=== PATIENT | male | born 1950 | race Caucasian/White ===

== ENCOUNTER 2019-08-05 14:14 | Inpatient (IN) | payer MEDICARE, OTHER ==
[~2019-08-05] VITALS: Ht 170.2 cm; Wt 148.0 kg
[2019-08-05 14:56] LABS: BASOPHILS # (AUTO) 0.1 X10'3 (0-0.2); BASOPHILS % (AUTO) 0.7 % (0-1); EOSINOPHILS # (AUTO) 0.1 X10'3 (0-0.9); EOSINOPHILS % (AUTO) 0.6 % (0-6); HEMATOCRIT 42.2 % (42.0-52.0); HEMOGLOBIN 13.7 g/dl (14.0-17.9); LYMPHOCYTES # (AUTO) 0.8 X10'3 (1.1-4.8); LYMPHOCYTES % (AUTO) 7.9 % (21-51); MEAN CORPUSCULAR HEMOGLOBIN 27.7 PG (27.0-31.0); MEAN CORPUSCULAR HGB CONC 32.6 g/dL (33.0-36.5); MEAN CORPUSCULAR VOLUME 85.2 FL (78-98); MEAN PLATELET VOLUME 8.1 FL (7.4-10.4); MONOCYTES # (AUTO) 1.1 X10'3 (0-0.9); MONOCYTES % (AUTO) 10.8 % (2-12); NEUTROPHILS # (AUTO) 8.2 X10'3 (1.8-7.7); PLATELET COUNT 325 X10'3 (140-440); RED BLOOD COUNT 4.96 X10'6 (4.70-6.10); RED CELL DISTRIBUTION WIDTH 16.5 % (11.5-14.5); WHITE BLOOD COUNT 10.2 X10'3 (4.5-11.0)
[2019-08-05 15:04] LABS: PARTIAL THROMBOPLASTIN TIME 28 SECONDS (22-32)
[2019-08-05 15:06] LABS: ALANINE AMINOTRANSFERASE 19 U/L (12-78); ALBUMIN 2.7 G/DL (3.4-5.0); ALBUMIN/GLOBULIN RATIO 0.7 (1.1-1.5); ALKALINE PHOSPHATASE 77 IU/L (46-116); ANION GAP 7 (8-16); ASPARTATE AMINO TRANSFERASE 21 U/L (10-37); BILIRUBIN,TOTAL 0.7 MG/DL (0.1-1.0); BLOOD UREA NITROGEN 10 MG/DL (7-18); BUN/CREATININE RATIO 11.4 (5.4-32.0); CALCIUM 8.4 MG/DL (8.5-10.1); CHLORIDE 104 MMOL/L (99-107); CREATININE 0.88 MG/DL (0.60-1.10); GLUCOSE 130 MG/DL (70-104); POTASSIUM 3.2 MMOL/L (3.5-5.1); SODIUM 141 MMOL/L (135-145); TOTAL CARBON DIOXIDE 30.3 MMOL/L (24-32); TOTAL PROTEIN 6.5 G/DL (6.4-8.2); eGFR 86 ML/MIN
[2019-08-05] MEDS ORDERED: ondansetron/PF 4mg/2ml inj IV ONE (15:15)
[2019-08-05] MEDS ORDERED: diltiazem 5mg/ml 5ml inj. IV ONE (15:15)
[2019-08-05] MEDS ORDERED: morphine 4 MG/ML inj SYRINge IV ONE ×2 (15:15→17:15)
[2019-08-05] MEDS ORDERED: diltiazem-D5W 125mg/125ml 125 ML IV SCH ×3 (16:10→22:50)
[2019-08-05] MEDS ORDERED: LORazepam 2 mg/ml vial IV ONE ×2 (16:35→16:40)
--- NOTE | 2019-08-05 16:35 | NUR ---
[address] SCAN PER [facility], WITH PORTABLE MONITOR INTACT. PATIENT HAS O2 PER NC AT 3LPM WITH O2 SATS 93%. PATIENT WAS TRANSFERRED TO CT TABLE WITH MUCH PAIN AND INABILITY TO RECLINE AND STATES THAT HE CANNOT BREATHE. O2 INCREASED TO 10 LPM. HR PER MONITOR IS FLUCTUATING FROM 110'S TO 150'S. O2 SATS 92% ON O2 PER NC. ATTEMPTED TO REPOSITION PATIENT WITHOUT SUCCESS. 1620 PATIENT UNABLE TO TOLERATE CT SCANS AND IS TRANSFERRED BACK TO [facility] AND RETURNED TO ER #[id number]. DR. RODRIGUEZ NOTIFIED OF PATIENT'S INABILITY TO TOLERATE CT SCAN.
[2019-08-05] MEDS ORDERED: metoprolol tartrate 1mg/ml inj IV ONE (16:40)
--- NOTE | 2019-08-05 17:01 | NUR ---
PATIENT BACK FROM CT EARLIER BUT JUSY NOW TOLD BY [employer] COATINGS INSTALLER THAT OUMOU WAS UNABLE AND REFUSED TO HAVE HIS HEAD LOWERED
[2019-08-05] MEDS: diltiazem-NS 100mg/100ml 100 ML IV SCH ×3 (17:10→22:58)
[2019-08-05] MEDS ORDERED: morphine 2 MG/ML inj. syringe IV ONE (17:20)
--- NOTE | 2019-08-05 17:30 | NUR ---
RIGHT 20 GAUGE PIV STARTED
--- NOTE | 2019-08-05 17:31 | NUR ---
relieving RN for lunch, pt is on monitor with RN at CT
--- NOTE | 2019-08-05 17:31 | NUR ---
RIGHT AC PIV
[2019-08-05] MEDS ORDERED: potassium Cl 20 mEq SR tablet PO STA (17:37)
--- NOTE | 2019-08-05 17:45 | NUR ---
TRAUMA CALLED OFF BY DR RODRIGUEZ
[2019-08-05] MEDS ORDERED: magnesium 2GM in 50ml NS 50 ML IV ONE (18:25)
[2019-08-05] MEDS ORDERED: ketorolac tromethamine 15mg/ml inj. IV ONE (18:55)
[2019-08-05] MEDS ORDERED: normal saline 1000ml 1,000 ML IV SCH (19:03)
[2019-08-05] MEDS ORDERED: magnesium hydroxide 30ml (MOM) UD suspension PO PRN (19:05)
[2019-08-05] MEDS ORDERED: acetaminophen 325mg tablet PO PRN (19:05)
[2019-08-05] MEDS ORDERED: potassium Cl 20 mEq SR tablet PO PRN (19:05)
[2019-08-05] MEDS ORDERED: mag hydrox/Alum hydrox/simeth 30ml oral suspension PO PRN (19:05)
[2019-08-05] MEDS ORDERED: ondansetron/PF 4mg/2ml inj IV PRN (19:05)
[2019-08-05] MEDS ORDERED: morphine/NS 5 mg/ml CADD 50 ML IV SCH (19:07)
[2019-08-05] MEDS ORDERED: CADD PCA waste documentation MC PRN (19:10)
[2019-08-05] MEDS ORDERED: naloxone 0.4 mg/ml inj IV PRN (19:10)
--- NOTE | 2019-08-05 21:25 | NUR ---
TALKED TO DR CURIEL RE INCREASING CONFUSION AND NEED FOR WOUND CARE CONSULT
--- NOTE | 2019-08-05 21:33 | NUR ---
Patient in room ED 8. I have received report from Alicia WARD and had the opportunity to ask questions and assume patient care.
--- NOTE | 2019-08-05 21:33 | NUR ---
REPORT TO ANTIONE WARD CANDICE UNIT; PATIENT TO BE TRANSFERED TO ROOM 313 A. RN AWARE THAT MEDICATION RECONCILIATION NOT DONE AND DR VILLA IS AWARE AND OK WITH THE MEDICATION RECONCILIATION BEING COMPLETED ON THE FLOOR.
--- NOTE | 2019-08-05 22:25 | NUR ---
pt BP 85/[address] Bolton [facility] gtt changed from 20mg to 10mg/hr.
[2019-08-05 22:30] VITALS: BP 94/68
[2019-08-05 22:45] VITALS: BP 90/36
[2019-08-05 23:00] VITALS: BP 108/76
[2019-08-05] MEDS ORDERED: HYDROmorphone/NS 1 mg/ml CADD 50 ML IV SCH (23:00)
[2019-08-05] MEDS ORDERED: METO100T14 PO (23:03)
[2019-08-05] MEDS ORDERED: RIVA2.5T (23:13)
[2019-08-05 23:15] VITALS: BP 115/73
[2019-08-05] MEDS ORDERED: FLO0.4C PO (23:18)
[2019-08-05] MEDS ORDERED: ASPI-1265 PO (23:20)
[2019-08-05] MEDS ORDERED: ASCO500C15 PO (23:22)
[2019-08-05] MEDS ORDERED: B12/1TAB PO (23:22)
[2019-08-05] MEDS ORDERED: ACET-2119 PO (23:23)
[2019-08-05] MEDS ORDERED: DILT180C90 PO (23:25)
[2019-08-05 23:30] VITALS: BP 136/98
--- NOTE | 2019-08-05 23:30 | NUR ---
pt had multiple epsiode of confusion, Dilaudid cad was postponed, will notify Dr Gilbert
[2019-08-06] VITALS (11 sets, daily range): BP systolic 104–134; BP diastolic 40–83
[2019-08-06 02:05] LABS: BASOPHILS # (AUTO) 0.1 X10'3 (0-0.2); BASOPHILS % (AUTO) 0.6 % (0-1); EOSINOPHILS # (AUTO) 0.1 X10'3 (0-0.9); EOSINOPHILS % (AUTO) 1.5 % (0-6); HEMATOCRIT 40.7 % (42.0-52.0); HEMOGLOBIN 12.9 g/dl (14.0-17.9); LYMPHOCYTES % (AUTO) 10.8 % (21-51); MEAN CORPUSCULAR HEMOGLOBIN 27.5 PG (27.0-31.0); MEAN CORPUSCULAR HGB CONC 31.7 g/dL (33.0-36.5); MEAN CORPUSCULAR VOLUME 86.7 FL (78-98); MEAN PLATELET VOLUME 8.2 FL (7.4-10.4); MONOCYTES # (AUTO) 1.5 X10'3 (0-0.9); NEUTROPHILS # (AUTO) 6.8 X10'3 (1.8-7.7); NEUTROPHILS % (AUTO) 71.1 % (42-75); PLATELET COUNT 298 X10'3 (140-440); RED BLOOD COUNT 4.69 X10'6 (4.70-6.10); RED CELL DISTRIBUTION WIDTH 17.3 % (11.5-14.5); WHITE BLOOD COUNT 9.6 X10'3 (4.5-11.0)
[2019-08-06 02:16] LABS: ALANINE AMINOTRANSFERASE 21 U/L (12-78); ALBUMIN 2.7 G/DL (3.4-5.0); ALBUMIN/GLOBULIN RATIO 0.7 (1.1-1.5); ALKALINE PHOSPHATASE 74 IU/L (46-116); ANION GAP 4 (8-16); ASPARTATE AMINO TRANSFERASE 20 U/L (10-37); BILIRUBIN,TOTAL 0.5 MG/DL (0.1-1.0); BLOOD UREA NITROGEN 18 MG/DL (7-18); BUN/CREATININE RATIO 16.4 (5.4-32.0); CALCIUM 8.4 MG/DL (8.5-10.1); CHLORIDE 105 MMOL/L (99-107); GLUCOSE 106 MG/DL (70-104); POTASSIUM 4.1 MMOL/L (3.5-5.1); SODIUM 141 MMOL/L (135-145); TOTAL CARBON DIOXIDE 31.9 MMOL/L (24-32); TOTAL PROTEIN 6.5 G/DL (6.4-8.2); eGFR 67 ML/MIN
[2019-08-06 04:25] LABS: ABG BASE EXCESS 3.3 mmol/L (-2.0-3.0); ABG HCO3 30.5 mmol/L (22.0-26.0); ABG OXYGEN SATURATION 86.6 % (95-98); ABG PH (T) 7.326 (7.350-7.450); ABG PO2 (T) 59.7 mmHg (83-108); ALLEN'S TEST Positive; FCOHb 1.2 % (0.5-1.5); FMetHb 0.3 % (0.3-1.12); FO2Hb 85.3 % (94-100); PATIENT TEMPERATURE 37.4; TOTAL HEMOGLOBIN 12.7 G/dl (14.0-17.9)
--- NOTE | 2019-08-06 05:00 | NUR ---
Dr Bolton ordered to hold off on the dilaudid CAD due to pt confusion, second ABG order @0630 to follow up due to CO2 retention
--- NOTE | 2019-08-06 06:23 | NUR ---
Problems reprioritized. Patient report given, questions answered & plan of care reviewed with Jean WARD.
--- NOTE | 2019-08-06 06:30 | NUR ---
Patient in room MED 313. I have received report from SYLVIA Rick and had the opportunity to ask questions and assume patient care.
[2019-08-06] MEDS: K and/or MAG REPLACEMENT MC SCH (06:51)
--- NOTE | 2019-08-06 07:07 | NUR ---
PAGER ID: [phone] MESSAGE: [phone] Zachariah Charanjit: Do you want to get a D-dimer and a PBNP on patient? SYLVIA Pena Ext [phone]
[2019-08-06 07:10] LABS: ABG BASE EXCESS 2.5 mmol/L (-2.0-3.0); ABG HCO3 28.9 mmol/L (22.0-26.0); ABG OXYGEN SATURATION 92.6 % (95-98); ABG PCO2 (T) 52.6 mmHg (35.0-45.0); ABG PH (T) 7.358 (7.350-7.450); ABG PO2 (T) 71.6 mmHg (83-108); ALLEN'S TEST Positive; FCOHb 0.3 % (0.5-1.5); FMetHb 0.3 % (0.3-1.12); TOTAL HEMOGLOBIN 12.8 G/dl (14.0-17.9)
[2019-08-06] MEDS: docusate sod 100mg capsule PO SCH ×2 (07:38→19:08)
[2019-08-06] MEDS: aspirin 81mg tab.chew PO SCH (07:38)
[2019-08-06] MEDS: tamsulosin 0.4mg capsule PO SCH (07:38)
[2019-08-06] MEDS: rivaroxaban 20mg tablet PO SCH (07:38)
[2019-08-06] MEDS ORDERED: diltiazem CD 180mg cap (once-daily) PO SCH (08:00)
[2019-08-06] MEDS ORDERED: digoxin 250mcg/ml 2ml ampule IV ONE (08:10)
[2019-08-06] MEDS: HYDROcodone/acetaminophen 5mg/325mg tablet PO PRN ×2 (08:37→14:08)
[2019-08-06] MEDS: diltiazem 30mg tablet PO SCH ×4 (08:37→19:08)
[2019-08-06] MEDS: diltiazem-NS 100mg/100ml 100 ML IV SCH (08:58)
[2019-08-06] MEDS: furosemide 20 MG/2 ML vial IV SCH ×2 (09:54→19:07)
--- NOTE | 2019-08-06 16:08 | NUR ---
Patient in room MED 313. I have received report from SYLVIA Pena in [facility]E and had the opportunity to ask questions and assume patient care.
--- NOTE | 2019-08-06 16:50 | NUR ---
PAGER ID: [phone] MESSAGE: [phone]. Can we please have nystatin powder for the patient pannus and groin. Also patient has yellow/ cream discharge coming from R eye. Letitia [phone]
--- NOTE | 2019-08-06 18:00 | NUR ---
Patient in room PCU 3023. I have received report from Letitia WARD and Marisol WARD and had the opportunity to ask questions and assume patient care.
--- NOTE | 2019-08-06 18:23 | NUR ---
Orientee documentation: I have reviewed and agree with interventions, assessments performed and documented by Marisol WARD. Orientee Medication Administration: For this medication-pass time frame, medication were reviewed, dispensed, administered and documented per hospital policy by Marisol WARD.
--- NOTE | 2019-08-06 18:25 | NUR ---
Problems reprioritized. Patient report given, questions answered & plan of care reviewed with Pamela WARD. Patient stable at transfer of care.
[2019-08-06] MEDS: ciprofloxacin 0.3% 2.5ml ophthalmic solution EACHEYE SCH ×2 (19:08→23:56)
[2019-08-06] MEDS: morphine 2 MG/ML inj. syringe IV PRN (19:28)
[2019-08-06] MEDS: nystatin 15 GM powder TP SCH (21:33)
--- NOTE | 2019-08-06 22:35 | NUR ---
HR 120s SUSTAINING PAGER ID: [phone] MESSAGE: [phone] Zachariah Knowles: Sustaining HR over 120s, patient is asymptomatic and comfortable. He has Cardizem 30mg PO Q6h ordered, dose was given at 1999. Do you want to change the dose? Pamela WARD [id number]
[2019-08-06] MEDS ORDERED: metoprolol tartrate 1mg/ml inj IV PRN (22:45)
[2019-08-06] MEDS ORDERED: diltiazem 30mg tablet PO ONE (22:45)
[2019-08-07] VITALS (12 sets, daily range): BP systolic 91–134; BP diastolic 56–92
--- NOTE | 2019-08-07 | NUR ---
PCU NOTE At change of shift (1800), Patient was on 6L nasal cannula, confused stating that he needed a "knife and scissors to cut out"; Patient was saturated in the low 80%. Bipap was the put on and he became more coherent but saturations were still 83-85%; respiratory was called to come up and look at the patient and for some help. FIO2 was then changed from 50% to 100% and 27/10 because the saturations were barely touching 90%. Patient then started to grab and take of the mask after that we did a trial of the non rebreather at 100% oxygen and saturations lifted to 93-95%. MD Bolton was notified of the change in condition, ordered ABG and leave the non rebreather for another 30 min. MD Bolton came to the floor to speak to the patient about the possibility of intubation and patient was okay with the plan if need be. DANIELE Huizar came to see the patient and ordered more labs, antibiotics, medication, and for morphine to be given. BiPAP was placed back on at 90% and saturated at 90-93%. Cuevas catheter was placed due to the increasing swelling in the groin area. Patient's blood pressure ran low, SBP of 94-98 and saturations of 93% from 2129 on. 2229 it was decided by DANIELE Huizar that it would be best to transfer to Critical Care for higher level of care. Addendum: 08/08/19 at 0006 by Pamela Garcia RN WRONG TIME NEEDS TO BE 08/07/19 2300
[2019-08-07] MEDS: diltiazem 30mg tablet PO SCH ×4 (01:54→19:15)
[2019-08-07] MEDS: morphine 2 MG/ML inj. syringe IV PRN ×5 (02:23→22:59)
[2019-08-07] MEDS: ciprofloxacin 0.3% 2.5ml ophthalmic solution EACHEYE SCH ×5 (04:28→19:15)
--- NOTE | 2019-08-07 05:30 | NUR ---
END NOC NOTE Patient is very noncompliant with repositioning and douglas care; Patient was thoroughly about the benefits of repositioning and douglas-care and repercussions of not. Patient is able to reposition in bed by himself (and has shown he can), however states that his pain is too much for him to move; Morphine has been given twice this shift. With the help of two other staff members (Deirdre WARD and Jessi ANDERSON) we were able to change out the soiled linens and absorbent pads at 0300. Wound care has been done to the pannis and groin area, wound care nurse should see the patient in AM, pictures in the chart. Will continue to monitor.
[2019-08-07] MEDS: HYDROcodone/acetaminophen 5mg/325mg tablet PO PRN ×2 (05:49→09:34)
[2019-08-07 06:08] LABS: BASOPHILS # (AUTO) 0.1 X10'3 (0-0.2); BASOPHILS % (AUTO) 0.6 % (0-1); EOSINOPHILS # (AUTO) 0.1 X10'3 (0-0.9); EOSINOPHILS % (AUTO) 1.6 % (0-6); HEMATOCRIT 39.5 % (42.0-52.0); HEMOGLOBIN 12.7 g/dl (14.0-17.9); LYMPHOCYTES # (AUTO) 0.8 X10'3 (1.1-4.8); LYMPHOCYTES % (AUTO) 8.4 % (21-51); MEAN CORPUSCULAR HEMOGLOBIN 27.9 PG (27.0-31.0); MEAN CORPUSCULAR HGB CONC 32.2 g/dL (33.0-36.5); MEAN CORPUSCULAR VOLUME 86.6 FL (78-98); MEAN PLATELET VOLUME 8.6 FL (7.4-10.4); MONOCYTES # (AUTO) 1.4 X10'3 (0-0.9); MONOCYTES % (AUTO) 15.3 % (2-12); NEUTROPHILS # (AUTO) 6.8 X10'3 (1.8-7.7); NEUTROPHILS % (AUTO) 74.1 % (42-75); PLATELET COUNT 271 X10'3 (140-440); RED BLOOD COUNT 4.56 X10'6 (4.70-6.10); RED CELL DISTRIBUTION WIDTH 16.8 % (11.5-14.5); WHITE BLOOD COUNT 9.2 X10'3 (4.5-11.0)
--- NOTE | 2019-08-07 06:35 | NUR ---
Problems reprioritized. Patient report given, questions answered & plan of care reviewed with Ольга WARD.
[2019-08-07 06:51] LABS: ALANINE AMINOTRANSFERASE 18 U/L (12-78); ALBUMIN 2.5 G/DL (3.4-5.0); ALBUMIN/GLOBULIN RATIO 0.6 (1.1-1.5); ALKALINE PHOSPHATASE 69 IU/L (46-116); ANION GAP 7 (8-16); ASPARTATE AMINO TRANSFERASE 22 U/L (10-37); BILIRUBIN,TOTAL 0.5 MG/DL (0.1-1.0); BLOOD UREA NITROGEN 15 MG/DL (7-18); BUN/CREATININE RATIO 18.3 (5.4-32.0); CALCIUM 8.5 MG/DL (8.5-10.1); CHLORIDE 105 MMOL/L (99-107); CREATININE 0.82 MG/DL (0.60-1.10); GLUCOSE 130 MG/DL (70-104); POTASSIUM 3.5 MMOL/L (3.5-5.1); SODIUM 142 MMOL/L (135-145); TOTAL CARBON DIOXIDE 30.3 MMOL/L (24-32); TOTAL PROTEIN 6.5 G/DL (6.4-8.2); eGFR > 90 ML/MIN
--- NOTE | 2019-08-07 07:01 | NUR ---
Patient in room PCU 3014. I have received report from Lainey and had the opportunity to ask questions and assume patient care.
[2019-08-07 07:08] LABS: ANISOCYTOSIS 1+; PLATELET ESTIMATE NORMAL; TOTAL CELLS COUNTED 100
[2019-08-07] MEDS: tamsulosin 0.4mg capsule PO SCH (07:19)
[2019-08-07] MEDS: rivaroxaban 20mg tablet PO SCH (07:19)
[2019-08-07] MEDS: furosemide 20 MG/2 ML vial IV SCH ×2 (07:20→19:15)
[2019-08-07] MEDS: docusate sod 100mg capsule PO SCH ×2 (07:20→19:15)
[2019-08-07] MEDS: aspirin 81mg tab.chew PO SCH (07:20)
[2019-08-07] MEDS: nystatin 15 GM powder TP SCH ×3 (07:24→21:45)
[2019-08-07] MEDS: K and/or MAG REPLACEMENT MC SCH (08:00)
--- NOTE | 2019-08-07 10:10 | NUR ---
Notified Dr. Church regarding HR in the 140's, PRN order for Metoprolol given as ordered.
--- NOTE | 2019-08-07 15:40 | NUR ---
PAGER ID: [phone] MESSAGE: [phone] ZachariahCharanjit hays Pt's mentation is becoming altered and he is sating at 89% on 6/L via NC. Patient has been placed back on bipap, can we repeat ABG's? Linda WARD, PCU 2681
--- NOTE | 2019-08-07 16:00 | NUR ---
Upon assessment the patient was disoriented and dyspneic. Patient was reporting difficulty getting enough air, pt on 6/L via NC and sating at 89%. Lung sounds were course and wet sounding which were audible heard without stethoscope. Patient placed back on Bipap. Patient also c/o pain rib pain which was exacerbating his dyspnea. Patient was repositioned in bed to put less pressure on diaphram, morphine administered and MD notified to request repeat ABG's. Patient also had low grade temp. No return call from MD at this time. RT and charge nurse aware. Patient removed from bipap and morphine seemed to be effective in deacreasing his pain and patients cognition returned to baseline quickly. Patient reports "feeling better." however, lung sounds are still course. Patient has been somewhat cooperative with using I.S. throughout the day. Will continue to monitor for changes.
--- NOTE | 2019-08-07 16:35 | NUR ---
Dr. Church returned call giving orders to repeat ABG's as requesting. Notified him of his lung sounds and low grade temp. No other new orders given other than to repeat the ABG's. Patient did get up on edge of with PT but was immoble. RT notified of request for ABG's.
[2019-08-07 17:15] LABS: ABG BASE EXCESS 6.4 mmol/L (-2.0-3.0); ABG HCO3 33.3 mmol/L (22.0-26.0); ABG OXYGEN SATURATION 92.3 % (95-98); ABG PCO2 (T) 58.8 mmHg (35.0-45.0); ABG PH (T) 7.371 (7.350-7.450); ABG PO2 (T) 68.7 mmHg (83-108); ALLEN'S TEST Positive; FCOHb 0.6 % (0.5-1.5); FLOW 6 L/min; FMetHb 0.3 % (0.3-1.12); FO2Hb 91.5 % (94-100); RESPIRATORY RATE (OBSERVED) 24 b/min; TOTAL HEMOGLOBIN 12.7 G/dl (14.0-17.9)
--- NOTE | 2019-08-07 17:29 | NUR ---
PAGER ID: [phone] MESSAGE: [phone] MARCELLA Carreon results are in. Linda WARD, PCU
--- NOTE | 2019-08-07 18:00 | NUR ---
Patient in room CICU 2007. I have received report from Ольга WARD and had the opportunity to ask questions and assume patient care.
--- NOTE | 2019-08-07 18:37 | NUR ---
Problems reprioritized. Patient report given, questions answered & plan of care reviewed with Lainey.
[2019-08-07 20:20] LABS: ABG BASE EXCESS 8.5 mmol/L (-2.0-3.0); ABG PCO2 (T) 64.3 mmHg (35.0-45.0); ABG PH (T) 7.367 (7.350-7.450); ABG PO2 (T) 107.7 mmHg (83-108); FCOHb 0.3 % (0.5-1.5); FLOW 15 L/min; FMetHb 0.3 % (0.3-1.12); FO2Hb 95.4 % (94-100); PATIENT TEMPERATURE 37.2; RESPIRATORY RATE (OBSERVED) 26 b/min; TOTAL HEMOGLOBIN 13.3 G/dl (14.0-17.9)
[2019-08-07] MEDS ORDERED: furosemide 10 MG/1 ML 10ml inj IV ONE (20:35)
[2019-08-07] MEDS ORDERED: morphine 2 MG/ML inj. syringe IV PRN (20:35)
[2019-08-07] MEDS ORDERED: albuterol 2.5 MG/3 ML nebule NEB PRN (20:35)
[2019-08-07] MEDS: CefTRIAXone 2gm/D5W 50ml 50 ML IV SCH (21:00)
[2019-08-07 21:06] LABS: CLARITY,URINE SLIGHTLY CLOUDY (Clear); COLOR,URINE YELLOW (Yellow); GLUCOSE, URINE NEGATIVE (Neg); KETONES,URINE NEGATIVE (Neg); LEUKOCYTE ESTERASE ,URINE TRACE (Neg); NITRITES, URINE NEGATIVE (Neg); OCCULT BLOOD,URINE TRACE-INTACT (Neg); PROTEIN,URINE NEGATIVE (Neg); UA COLLECTION TYPE CLN CATCH MIDSTREAM; UROBILINOGEN,URINE 0.2 E.U/dL (0.2-1.0)
[2019-08-07 21:11] LABS: SQUAMOUS EPITHELIAL CELL,UR FEW /LPF (FEW)
[2019-08-07 21:12] LABS: BACTERIA,URINE FEW /HPF (Neg); RBC,URINE 0-2 /HPF (0-2); WBC,URINE 0-4 /HPF (0-4)
[2019-08-07 21:16] LABS: BASOPHILS % (AUTO) 0.3 % (0-1); EOSINOPHILS # (AUTO) 0.1 X10'3 (0-0.9); EOSINOPHILS % (AUTO) 0.9 % (0-6); HEMATOCRIT 40.6 % (42.0-52.0); LYMPHOCYTES # (AUTO) 0.6 X10'3 (1.1-4.8); LYMPHOCYTES % (AUTO) 5.9 % (21-51); MEAN CORPUSCULAR HEMOGLOBIN 27.8 PG (27.0-31.0); MEAN CORPUSCULAR HGB CONC 32.1 g/dL (33.0-36.5); MEAN CORPUSCULAR VOLUME 86.6 FL (78-98); MEAN PLATELET VOLUME 8.9 FL (7.4-10.4); MONOCYTES # (AUTO) 1.5 X10'3 (0-0.9); MONOCYTES % (AUTO) 15.3 % (2-12); NEUTROPHILS # (AUTO) 7.4 X10'3 (1.8-7.7); NEUTROPHILS % (AUTO) 77.6 % (42-75); PLATELET COUNT 292 X10'3 (140-440); RED BLOOD COUNT 4.69 X10'6 (4.70-6.10); RED CELL DISTRIBUTION WIDTH 16.8 % (11.5-14.5); WHITE BLOOD COUNT 9.5 X10'3 (4.5-11.0)
[2019-08-07] MEDS: methylPREDNISolone sod succ 125mg/2ml vial IV SCH (21:38)
[2019-08-07 21:45] LABS: ALANINE AMINOTRANSFERASE 19 U/L (12-78); ALBUMIN 2.6 G/DL (3.4-5.0); ALBUMIN/GLOBULIN RATIO 0.6 (1.1-1.5); ALKALINE PHOSPHATASE 73 IU/L (46-116); ANION GAP 5 (8-16); ASPARTATE AMINO TRANSFERASE 19 U/L (10-37); BILIRUBIN,TOTAL 0.7 MG/DL (0.1-1.0); BLOOD UREA NITROGEN 15 MG/DL (7-18); BUN/CREATININE RATIO 19.5 (5.4-32.0); CALCIUM 8.8 MG/DL (8.5-10.1); CHLORIDE 103 MMOL/L (99-107); CREATININE 0.77 MG/DL (0.60-1.10); GLUCOSE 147 MG/DL (70-104); MAGNESIUM 1.7 MG/DL (1.5-2.4); PHOSPHORUS 2.7 MG/DL (2.3-4.5); POTASSIUM 3.5 MMOL/L (3.5-5.1); SODIUM 144 MMOL/L (135-145); TOTAL CARBON DIOXIDE 35.9 MMOL/L (24-32); TOTAL PROTEIN 6.9 G/DL (6.4-8.2); eGFR > 90 ML/MIN
[2019-08-07] MEDS ORDERED: levoFLOXACIN-Levaquin 750MG/D5 150 ML IV SCH (22:00)
[2019-08-07 22:40] LABS: ABG BASE EXCESS 6.4 mmol/L (-2.0-3.0); ABG HCO3 31.9 mmol/L (22.0-26.0); ABG OXYGEN SATURATION 92.3 % (95-98); ABG PCO2 (T) 49.4 mmHg (35.0-45.0); ABG PH (T) 7.427 (7.350-7.450); ABG PO2 (T) 66.3 mmHg (83-108); ALLEN'S TEST Positive; FCOHb 0.5 % (0.5-1.5); FMetHb 0.3 % (0.3-1.12); FO2Hb 91.6 % (94-100); PATIENT TEMPERATURE 36.9; RESPIRATORY RATE (OBSERVED) 25 b/min; TOTAL HEMOGLOBIN 12.9 G/dl (14.0-17.9)
[2019-08-07 22:54] LABS: TOTAL CELLS COUNTED 100
[2019-08-07 22:55] LABS: ANISOCYTOSIS 1+; PLATELET ESTIMATE NORMAL
[2019-08-07 22:57] LABS: POLYCHROMASIA 1+; STOMATOCYTES 1+
--- NOTE | 2019-08-07 23:00 | NUR ---
Problems reprioritized. Patient report given, questions answered & plan of care reviewed with Sky WARD.
--- NOTE | 2019-08-07 23:02 | NUR ---
Received pt report from Pamela WARD. PT to CICU on bipap at 100%, accompanied by RT.
[2019-08-07] MEDS: ipratropium/albuterol 3ml nebule NEB SCH (23:06)
[2019-08-07] MEDS ORDERED: furosemide 40mg/4ml inj IV ONE (23:40)
[2019-08-08] VITALS (23 sets, daily range): BP systolic 94–129; BP diastolic 54–90
[2019-08-08 00:16] LABS: ABG BASE EXCESS 7.4 mmol/L (-2.0-3.0); ABG HCO3 33.6 mmol/L (22.0-26.0); ABG OXYGEN SATURATION 95.2 % (95-98); ABG PCO2 (T) 51.8 mmHg (35.0-45.0); ABG PH (T) 7.426 (7.350-7.450); ABG PO2 (T) 78.7 mmHg (83-108); ALLEN'S TEST Positive; FCOHb 0.3 % (0.5-1.5); FMetHb 0.3 % (0.3-1.12); FO2Hb 94.6 % (94-100); RESPIRATORY RATE 18 b/min; RESPIRATORY RATE (OBSERVED) 27 b/min; TOTAL HEMOGLOBIN 13.3 G/dl (14.0-17.9)
[2019-08-08] MEDS: ciprofloxacin 0.3% 2.5ml ophthalmic solution EACHEYE SCH ×6 (00:22→20:58)
[2019-08-08] MEDS: methylPREDNISolone sod succ 125mg/2ml vial IV SCH ×4 (01:15→20:56)
[2019-08-08] MEDS: diltiazem 30mg tablet PO SCH ×4 (01:15→20:58)
[2019-08-08] MEDS: morphine 2 MG/ML inj. syringe IV PRN ×2 (01:16→13:15)
[2019-08-08 03:20] LABS: ABG BASE EXCESS 9.7 mmol/L (-2.0-3.0); ABG HCO3 35.9 mmol/L (22.0-26.0); ABG OXYGEN SATURATION 93.2 % (95-98); ABG PCO2 (T) 54.2 mmHg (35.0-45.0); ABG PH (T) 7.437 (7.350-7.450); ABG PO2 (T) 67.3 mmHg (83-108); ALLEN'S TEST Positive; FCOHb 0.4 % (0.5-1.5); FMetHb 0.3 % (0.3-1.12); FO2Hb 92.5 % (94-100); PATIENT TEMPERATURE 36.7; RESPIRATORY RATE 18 b/min; RESPIRATORY RATE (OBSERVED) 24 b/min; TOTAL HEMOGLOBIN 13.3 G/dl (14.0-17.9)
[2019-08-08] MEDS: ipratropium/albuterol 3ml nebule NEB SCH ×6 (03:47→23:18)
[2019-08-08 05:06] LABS: BASOPHILS % (AUTO) 0.2 % (0-1); EOSINOPHILS % (AUTO) 0 % (0-6); HEMATOCRIT 40.6 % (42.0-52.0); HEMOGLOBIN 13.1 g/dl (14.0-17.9); LYMPHOCYTES # (AUTO) 0.2 X10'3 (1.1-4.8); LYMPHOCYTES % (AUTO) 3.1 % (21-51); MEAN CORPUSCULAR HEMOGLOBIN 27.8 PG (27.0-31.0); MEAN CORPUSCULAR HGB CONC 32.2 g/dL (33.0-36.5); MEAN CORPUSCULAR VOLUME 86.4 FL (78-98); MEAN PLATELET VOLUME 8.9 FL (7.4-10.4); MONOCYTES # (AUTO) 0.2 X10'3 (0-0.9); MONOCYTES % (AUTO) 2.8 % (2-12); NEUTROPHILS # (AUTO) 7.3 X10'3 (1.8-7.7); NEUTROPHILS % (AUTO) 93.9 % (42-75); PLATELET COUNT 286 X10'3 (140-440); RED CELL DISTRIBUTION WIDTH 17.3 % (11.5-14.5); WHITE BLOOD COUNT 7.8 X10'3 (4.5-11.0)
[2019-08-08 05:45] LABS: ALANINE AMINOTRANSFERASE 19 U/L (12-78); ALBUMIN 2.5 G/DL (3.4-5.0); ALBUMIN/GLOBULIN RATIO 0.6 (1.1-1.5); ALKALINE PHOSPHATASE 71 IU/L (46-116); ANION GAP 6 (8-16); ASPARTATE AMINO TRANSFERASE 20 U/L (10-37); BILIRUBIN,TOTAL 0.6 MG/DL (0.1-1.0); BLOOD UREA NITROGEN 15 MG/DL (7-18); CALCIUM 8.8 MG/DL (8.5-10.1); CHLORIDE 102 MMOL/L (99-107); CREATININE 0.79 MG/DL (0.60-1.10); GLUCOSE 156 MG/DL (70-104); POTASSIUM 3.4 MMOL/L (3.5-5.1); SODIUM 142 MMOL/L (135-145); TOTAL CARBON DIOXIDE 33.7 MMOL/L (24-32); eGFR > 90 ML/MIN
--- NOTE | 2019-08-08 06:33 | NUR ---
Pt report given to Ken WARD.
[2019-08-08 07:06] LABS: ABG HCO3 35.7 mmol/L (22.0-26.0); ABG OXYGEN SATURATION 93.9 % (95-98); ABG PCO2 (T) 52.5 mmHg (35.0-45.0); ABG PO2 (T) 73.7 mmHg (83-108); ALLEN'S TEST Positive; FCOHb 0.3 % (0.5-1.5); FMetHb 0.3 % (0.3-1.12); FO2Hb 93.3 % (94-100); MINUTE VOLUME 16 L/min; RESPIRATORY RATE 18 b/min; RESPIRATORY RATE (OBSERVED) 19 b/min; TOTAL HEMOGLOBIN 13.1 G/dl (14.0-17.9)
[2019-08-08] MEDS: K and/or MAG REPLACEMENT MC SCH (08:00)
[2019-08-08] MEDS: furosemide 40mg/4ml inj IV SCH ×2 (08:35→20:57)
[2019-08-08] MEDS: tamsulosin 0.4mg capsule PO SCH (08:35)
[2019-08-08] MEDS: rivaroxaban 20mg tablet PO SCH (08:35)
[2019-08-08] MEDS: docusate sod 100mg capsule PO SCH ×2 (08:35→20:57)
[2019-08-08] MEDS: aspirin 81mg tab.chew PO SCH (08:36)
[2019-08-08] MEDS: nystatin 15 GM powder TP SCH ×3 (08:48→20:58)
[2019-08-08] MEDS: HYDROcodone/acetaminophen 5mg/325mg tablet PO PRN (09:31)
[2019-08-08] MEDS: potassium Cl 20 mEq SR tablet PO PRN ×2 (09:41→16:03)
[2019-08-08] MEDS ORDERED: amiodarone 150mg/dext, iso-os 100 ML IV ONE (14:40)
[2019-08-08] MEDS: amiodarone/D5 360MG/200ML BAG 200 ML IV SCH ×2 (16:45→22:40)
[2019-08-08] MEDS: CefTRIAXone 2gm/D5W 50ml 50 ML IV SCH (20:56)
[2019-08-08] MEDS: lactobacillus rhamnosus 10,000 MMU CELLS/CAPSULE PO SCH (20:57)
[2019-08-08] MEDS: ketorolac trometh. 30mg/ml inj. IV SCH (20:57)
[2019-08-09] VITALS (22 sets, daily range): BP systolic 100–153; BP diastolic 61–130
[2019-08-09] MEDS ORDERED: morphine 2 MG/ML inj. syringe IV PRN (02:30)
[2019-08-09] MEDS: amiodarone/D5 360MG/200ML BAG 200 ML IV SCH ×4 (02:48→21:00)
[2019-08-09] MEDS: ipratropium/albuterol 3ml nebule NEB SCH ×6 (03:27→23:22)
[2019-08-09] MEDS: diltiazem 30mg tablet PO SCH ×4 (03:41→20:55)
[2019-08-09] MEDS: methylPREDNISolone sod succ 125mg/2ml vial IV SCH ×4 (03:41→20:52)
[2019-08-09] MEDS: ciprofloxacin 0.3% 2.5ml ophthalmic solution EACHEYE SCH ×6 (04:00→20:56)
[2019-08-09 04:58] LABS: BASOPHILS # (AUTO) 0.2 X10'3 (0-0.2); BASOPHILS % (AUTO) 1.5 % (0-1); EOSINOPHILS % (AUTO) 0 % (0-6); HEMATOCRIT 39.4 % (42.0-52.0); HEMOGLOBIN 12.8 g/dl (14.0-17.9); LYMPHOCYTES # (AUTO) 0.3 X10'3 (1.1-4.8); LYMPHOCYTES % (AUTO) 2.1 % (21-51); MEAN CORPUSCULAR HEMOGLOBIN 27.8 PG (27.0-31.0); MEAN CORPUSCULAR HGB CONC 32.5 g/dL (33.0-36.5); MEAN CORPUSCULAR VOLUME 85.6 FL (78-98); MEAN PLATELET VOLUME 9.1 FL (7.4-10.4); MONOCYTES # (AUTO) 0.6 X10'3 (0-0.9); MONOCYTES % (AUTO) 4.8 % (2-12); NEUTROPHILS # (AUTO) 11.1 X10'3 (1.8-7.7); NEUTROPHILS % (AUTO) 91.6 % (42-75); PLATELET COUNT 286 X10'3 (140-440); RED BLOOD COUNT 4.61 X10'6 (4.70-6.10); RED CELL DISTRIBUTION WIDTH 16.9 % (11.5-14.5); WHITE BLOOD COUNT 12.2 X10'3 (4.5-11.0)
[2019-08-09 05:16] LABS: ALANINE AMINOTRANSFERASE 19 U/L (12-78); ALBUMIN 2.3 G/DL (3.4-5.0); ALBUMIN/GLOBULIN RATIO 0.5 (1.1-1.5); ALKALINE PHOSPHATASE 66 IU/L (46-116); ANION GAP 6 (8-16); ASPARTATE AMINO TRANSFERASE 19 U/L (10-37); BILIRUBIN,TOTAL 0.3 MG/DL (0.1-1.0); BLOOD UREA NITROGEN 24 MG/DL (7-18); BUN/CREATININE RATIO 25.3 (5.4-32.0); CALCIUM 9.2 MG/DL (8.5-10.1); CHLORIDE 102 MMOL/L (99-107); CREATININE 0.95 MG/DL (0.60-1.10); GLUCOSE 160 MG/DL (70-104); SODIUM 142 MMOL/L (135-145); TOTAL CARBON DIOXIDE 34.1 MMOL/L (24-32); TOTAL PROTEIN 6.7 G/DL (6.4-8.2); eGFR 79 ML/MIN
[2019-08-09 05:18] LABS: POTASSIUM 2.8 MMOL/L (3.5-5.1)
--- NOTE | 2019-08-09 05:30 | NUR ---
RN Note -pt up to bedside commode. 3 person assist. Tolerated well.
[2019-08-09] MEDS: potassium Cl 20 mEq SR tablet PO PRN ×5 (05:57→23:28)
[2019-08-09] MEDS: K and/or MAG REPLACEMENT MC SCH (08:00)
[2019-08-09] MEDS: lactobacillus rhamnosus 10,000 MMU CELLS/CAPSULE PO SCH ×2 (09:00→20:52)
[2019-08-09] MEDS: rivaroxaban 20mg tablet PO SCH (09:00)
[2019-08-09] MEDS: tamsulosin 0.4mg capsule PO SCH (09:00)
[2019-08-09] MEDS: aspirin 81mg tab.chew PO SCH (09:00)
[2019-08-09] MEDS: docusate sod 100mg capsule PO SCH ×2 (09:00→20:00)
[2019-08-09] MEDS: nystatin 15 GM powder TP SCH ×3 (09:01→20:52)
[2019-08-09] MEDS: furosemide 40mg/4ml inj IV SCH ×2 (09:03→20:53)
[2019-08-09] MEDS: ketorolac trometh. 30mg/ml inj. IV SCH ×3 (09:03→21:00)
[2019-08-09] MEDS: levoFLOXACIN 750MG TABLET PO SCH (11:00)
[2019-08-09] MEDS: HYDROcodone/acetaminophen 5mg/325mg tablet PO PRN (11:00)
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
[2019-08-09] MEDS: LIDOcaine 5% patch TP SCH (15:17)
[2019-08-09] MEDS: CefTRIAXone 2gm/D5W 50ml 50 ML IV SCH (20:52)
[2019-08-10] VITALS (24 sets, daily range): BP systolic 103–158; BP diastolic 66–94
[2019-08-10] MEDS: ciprofloxacin 0.3% 2.5ml ophthalmic solution EACHEYE SCH ×6 (01:57→21:04)
[2019-08-10] MEDS: methylPREDNISolone sod succ 125mg/2ml vial IV SCH ×4 (01:57→21:02)
[2019-08-10] MEDS: diltiazem 30mg tablet PO SCH ×4 (01:57→21:03)
[2019-08-10] MEDS: amiodarone/D5 360MG/200ML BAG 200 ML IV SCH ×4 (02:20→21:16)
[2019-08-10] MEDS: ipratropium/albuterol 3ml nebule NEB SCH ×7 (03:00→23:03)
[2019-08-10 04:28] LABS: BASOPHILS % (AUTO) 0.2 % (0-1); EOSINOPHILS % (AUTO) 0 % (0-6); HEMATOCRIT 39.3 % (42.0-52.0); HEMOGLOBIN 12.5 g/dl (14.0-17.9); LYMPHOCYTES # (AUTO) 0.3 X10'3 (1.1-4.8); LYMPHOCYTES % (AUTO) 2.2 % (21-51); MEAN CORPUSCULAR HEMOGLOBIN 27.3 PG (27.0-31.0); MEAN CORPUSCULAR HGB CONC 31.8 g/dL (33.0-36.5); MEAN PLATELET VOLUME 8.4 FL (7.4-10.4); MONOCYTES # (AUTO) 0.5 X10'3 (0-0.9); MONOCYTES % (AUTO) 4.5 % (2-12); NEUTROPHILS % (AUTO) 93.1 % (42-75); PLATELET COUNT 293 X10'3 (140-440); RED BLOOD COUNT 4.57 X10'6 (4.70-6.10); WHITE BLOOD COUNT 11.8 X10'3 (4.5-11.0)
[2019-08-10 04:43] LABS: ALANINE AMINOTRANSFERASE 38 U/L (12-78); ALBUMIN 2.3 G/DL (3.4-5.0); ALBUMIN/GLOBULIN RATIO 0.5 (1.1-1.5); ANION GAP 8 (8-16); ASPARTATE AMINO TRANSFERASE 36 U/L (10-37); BILIRUBIN,TOTAL 0.3 MG/DL (0.1-1.0); BLOOD UREA NITROGEN 33 MG/DL (7-18); BUN/CREATININE RATIO 31.4 (5.4-32.0); CALCIUM 8.9 MG/DL (8.5-10.1); CHLORIDE 102 MMOL/L (99-107); CREATININE 1.05 MG/DL (0.60-1.10); GLUCOSE 162 MG/DL (70-104); POTASSIUM 3.2 MMOL/L (3.5-5.1); SODIUM 142 MMOL/L (135-145); TOTAL CARBON DIOXIDE 32.1 MMOL/L (24-32); TOTAL PROTEIN 6.5 G/DL (6.4-8.2); eGFR 70 ML/MIN
[2019-08-10 05:15] LABS: ALKALINE PHOSPHATASE 59 IU/L (46-116)
[2019-08-10] MEDS: potassium Cl 20 mEq SR tablet PO PRN ×2 (05:48→12:27)
[2019-08-10] MEDS: docusate sod 100mg capsule PO SCH ×2 (08:00→20:00)
[2019-08-10] MEDS: ketorolac trometh. 30mg/ml inj. IV SCH ×3 (08:00→20:18)
[2019-08-10] MEDS: K and/or MAG REPLACEMENT MC SCH (08:00)
[2019-08-10] MEDS: lactobacillus rhamnosus 10,000 MMU CELLS/CAPSULE PO SCH ×2 (08:13→21:03)
[2019-08-10] MEDS: LIDOcaine 5% patch TP SCH (08:13)
[2019-08-10] MEDS: tamsulosin 0.4mg capsule PO SCH (08:13)
[2019-08-10] MEDS: furosemide 40mg/4ml inj IV SCH ×2 (08:13→21:02)
[2019-08-10] MEDS: nystatin 15 GM powder TP SCH ×3 (08:14→21:04)
[2019-08-10] MEDS: aspirin 81mg tab.chew PO SCH (08:14)
[2019-08-10] MEDS: rivaroxaban 20mg tablet PO SCH (08:14)
--- NOTE | 2019-08-10 09:14 | NUR ---
PRESSURE ULCER EDUCATION: DEFINITION: A pressure ulcer is an area of skin that breaks down when you stay in one position too long. The constant pressure against the skin reduces the blood flow to that area and the affected tissue dies. CAUSES: "Being bedridden or in a wheelchair "Fragile skin "Having a chronic condition, such as diabetes or vascular disease "Inability to move certain parts of your body without assistance "Older age "Incontinence of urine or stool SYMPTOMS: "A reddened area that DOES NOT turn white when pressed on - this can be the beginning of a pressure ulcer "A blister, deep sore or a crater - these can be advanced pressure ulcers FIRST AID: "Relieve the pressure on this area "Keep the area clean and dry "Call your primary doctor if you see any of the above symptoms "DO NOT massage the area "DO NOT use a donut shaped or ring shaped pillow- these actually interfere with the blood flow and cause complications PREVENTION: "Check for pressure ulcers everyday "Change position at least every two hours to relieve pressure "Use items that help relieve pressure- pillows, sheepskin, foam padding, and powders. "Keep skin clean and dry "Eat healthy well balanced meals "Exercise daily IF YOU SEE ANY OF THESE SYMPTOMS WHILE IN THE HOSPITAL - TELL YOUR NURSE IMMEDIATELY. IF YOU SEE ANY OF THESE SYMPTOMS WHILE AT HOME OR HAVE ANY QUESTIONS OR CONCERNS ABOUT PRESSURE ULCERS - CALL YOUR PRIMARY DOCTOR IMMEDIATELY. Addendum: 08/10/19 at 0914 by Michele Oreilly RN Amended: Links added.
[2019-08-10] MEDS: levoFLOXACIN 750MG TABLET PO SCH (12:24)
[2019-08-10] MEDS: atenolol 50mg tablet PO SCH ×2 (12:24→21:03)
[2019-08-10 12:25] LABS: ABG BASE EXCESS 6.3 mmol/L (-2.0-3.0); ABG HCO3 31.2 mmol/L (22.0-26.0); ABG OXYGEN SATURATION 92.4 % (95-98); ABG PCO2 (T) 46.1 mmHg (35.0-45.0); ABG PH (T) 7.449 (7.350-7.450); ABG PO2 (T) 68.7 mmHg (83-108); ALLEN'S TEST Positive; FCOHb 0.1 % (0.5-1.5); FLOW 30 L/min; FMetHb 0.3 % (0.3-1.12); RESPIRATORY RATE (OBSERVED) 20 b/min; TOTAL HEMOGLOBIN 13.4 G/dl (14.0-17.9)
--- NOTE | 2019-08-10 18:30 | NUR ---
RN Note -Pt is expressing the desire to leave AMA. Says that he has family issues, is having trouble sleeping, is getting anxious, wants to see his dog, and several other reasons. Educated pt about his [employer] oxygen and mobility as well as his medical status. Eventually talked him into staying for dinner and discussing his issues with doctor in the morning.
--- NOTE | 2019-08-10 19:00 | NUR ---
RN Note -Pt transferred to commode and into bed. Three person assist. Heart rate stayed below 110 and pt is transferring much faster and easier without getting short of breath.
[2019-08-10] MEDS: CefTRIAXone 2gm/D5W 50ml 50 ML IV SCH (21:03)
[2019-08-11] VITALS (17 sets, daily range): BP systolic 101–170; BP diastolic 60–122
--- NOTE | 2019-08-11 | NUR ---
Patient in room CICU 2007. I have received report from Letitia Padgett RN and had the opportunity to ask questions and assume patient care.
[2019-08-11] MEDS: ciprofloxacin 0.3% 2.5ml ophthalmic solution EACHEYE SCH ×6 (00:46→20:43)
--- NOTE | 2019-08-11 01:00 | NUR ---
I have reviewed Letitia Padgett's RN charting and agree.
[2019-08-11] MEDS: methylPREDNISolone sod succ 125mg/2ml vial IV SCH ×4 (02:50→20:43)
[2019-08-11] MEDS: diltiazem 30mg tablet PO SCH ×4 (02:50→20:45)
[2019-08-11] MEDS: ipratropium/albuterol 3ml nebule NEB SCH ×6 (03:02→23:08)
[2019-08-11] MEDS: amiodarone/D5 360MG/200ML BAG 200 ML IV SCH (05:32)
--- NOTE | 2019-08-11 06:30 | NUR ---
Problems reprioritized. Patient report given, questions answered & plan of care reviewed with Lachelle WARD.
--- NOTE | 2019-08-11 06:36 | NUR ---
Patient in room CICU 2008. I have received report from Asad WARD and had the opportunity to ask questions and assume patient care.
[2019-08-11 07:43] LABS: BASOPHILS # (AUTO) 0.1 X10'3 (0-0.2); BASOPHILS % (AUTO) 0.9 % (0-1); EOSINOPHILS % (AUTO) 0 % (0-6); HEMOGLOBIN 13.3 g/dl (14.0-17.9); LYMPHOCYTES # (AUTO) 0.3 X10'3 (1.1-4.8); LYMPHOCYTES % (AUTO) 2.8 % (21-51); MEAN CORPUSCULAR HEMOGLOBIN 27.5 PG (27.0-31.0); MEAN CORPUSCULAR HGB CONC 32.4 g/dL (33.0-36.5); MEAN CORPUSCULAR VOLUME 84.7 FL (78-98); MEAN PLATELET VOLUME 8.7 FL (7.4-10.4); MONOCYTES # (AUTO) 0.4 X10'3 (0-0.9); MONOCYTES % (AUTO) 3.7 % (2-12); NEUTROPHILS # (AUTO) 9.3 X10'3 (1.8-7.7); NEUTROPHILS % (AUTO) 92.6 % (42-75); PLATELET COUNT 304 X10'3 (140-440); RED BLOOD COUNT 4.85 X10'6 (4.70-6.10); WHITE BLOOD COUNT 10.1 X10'3 (4.5-11.0)
[2019-08-11 07:51] LABS: ALBUMIN 2.4 G/DL (3.4-5.0); ANION GAP 7 (8-16); BLOOD UREA NITROGEN 36 MG/DL (7-18); BUN/CREATININE RATIO 34.6 (5.4-32.0); CALCIUM 8.7 MG/DL (8.5-10.1); CHLORIDE 101 MMOL/L (99-107); CREATININE 1.04 MG/DL (0.60-1.10); GLUCOSE 155 MG/DL (70-104); POTASSIUM 3.7 MMOL/L (3.5-5.1); SODIUM 141 MMOL/L (135-145); TOTAL CARBON DIOXIDE 32.7 MMOL/L (24-32); eGFR 71 ML/MIN
[2019-08-11] MEDS: ketorolac trometh. 30mg/ml inj. IV SCH (08:00)
--- NOTE | 2019-08-11 08:06 | NUR ---
I have reviewed and agree with all medications administered and interventions performed by [facility] Student Henry Antonio Addendum: 08/11/19 at 0806 by Anabella Rudd RT Amended: Links added.
[2019-08-11] MEDS: aspirin 81mg tab.chew PO SCH (08:31)
[2019-08-11] MEDS: lactobacillus rhamnosus 10,000 MMU CELLS/CAPSULE PO SCH ×2 (08:31→20:45)
[2019-08-11] MEDS: potassium Cl 20 mEq SR tablet PO PRN (08:31)
[2019-08-11] MEDS: atenolol 50mg tablet PO SCH ×2 (08:31→20:45)
[2019-08-11] MEDS: docusate sod 100mg capsule PO SCH ×2 (08:31→20:46)
[2019-08-11] MEDS: furosemide 40mg/4ml inj IV SCH ×2 (08:32→20:45)
[2019-08-11] MEDS: rivaroxaban 20mg tablet PO SCH (08:34)
[2019-08-11] MEDS: nystatin 15 GM powder TP SCH ×3 (08:35→20:46)
[2019-08-11] MEDS: tamsulosin 0.4mg capsule PO SCH (08:35)
[2019-08-11] MEDS: LIDOcaine 5% patch TP SCH (08:36)
[2019-08-11] MEDS: K and/or MAG REPLACEMENT MC SCH (08:47)
--- NOTE | 2019-08-11 11:42 | NUR ---
received orders to d/c amio drip and start amio 400mg BID to start now and to page hospitalist to have pt transfer to unit per dr. morton
--- NOTE | 2019-08-11 11:46 | NUR ---
PAGER ID: [phone] MESSAGE: Zachariah Pearce: Dr. Ulloa states pt is ready to be transferred out of [facility]. Thanks Lachelle [phone]
[2019-08-11] MEDS: amiodarone 200mg tablet PO SCH ×2 (11:58→20:44)
[2019-08-11] MEDS: levoFLOXACIN 750MG TABLET PO SCH (11:58)
--- NOTE | 2019-08-11 15:40 | NUR ---
F/U (08/11): Pt still requires oxygen support. Pt was working with physical therapist to walk around the hallway during critical care rounds. Pt is possibly transferring to PCU. Pt is documented with avg. po intake of 50-75%. LBM 08/09. Will continue to monitor. Recommendations: 1.Continue regular diet 2.Bowel care routine 3.weekly wt Addendum: 08/11/19 at [address] Amended: Links added. Addendum: 08/11/19 at [address] RD agree with note
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
--- NOTE | 2019-08-11 18:43 | NUR ---
Problems reprioritized. Patient report given, questions answered & plan of care reviewed with Linda WARD.
[2019-08-11] MEDS: CefTRIAXone 2gm/D5W 50ml 50 ML IV SCH (20:46)
--- NOTE | 2019-08-11 21:30 | NUR ---
notified r/t pt needing a sitter--throwing himself out of bed and throwing off cpap
--- NOTE | 2019-08-11 22:00 | NUR ---
code carey called--pt sitting on edge of bed--unable to stand placed back in bed and dilateral wrist restraints applied--md notified
[2019-08-12] MEDS: methylPREDNISolone sod succ 125mg/2ml vial IV SCH ×4 (02:40→20:45)
[2019-08-12] MEDS: diltiazem 30mg tablet PO SCH ×4 (02:41→20:46)
[2019-08-12 03:00] VITALS: BP 125/85
[2019-08-12] MEDS: ipratropium/albuterol 3ml nebule NEB SCH ×6 (03:06→23:39)
[2019-08-12] MEDS: ciprofloxacin 0.3% 2.5ml ophthalmic solution EACHEYE SCH ×6 (04:00→20:45)
[2019-08-12 06:00] VITALS: BP 155/102
--- NOTE | 2019-08-12 06:17 | NUR ---
Patient in room PCU 3013. I have received report from Linda WARD and had the opportunity to ask questions and assume patient care.
[2019-08-12] MEDS: K and/or MAG REPLACEMENT MC SCH (08:00)
[2019-08-12] MEDS: docusate sod 100mg capsule PO SCH ×2 (08:00→20:00)
[2019-08-12] MEDS: lactobacillus rhamnosus 10,000 MMU CELLS/CAPSULE PO SCH ×2 (08:49→20:46)
[2019-08-12] MEDS: amiodarone 200mg tablet PO SCH ×2 (08:49→20:46)
[2019-08-12] MEDS: aspirin 81mg tab.chew PO SCH (08:49)
[2019-08-12] MEDS: rivaroxaban 20mg tablet PO SCH (08:49)
[2019-08-12] MEDS: tamsulosin 0.4mg capsule PO SCH (08:50)
[2019-08-12] MEDS: atenolol 50mg tablet PO SCH ×2 (08:51→20:46)
[2019-08-12] MEDS: nystatin 15 GM powder TP SCH ×3 (08:51→21:01)
[2019-08-12] MEDS: furosemide 40mg/4ml inj IV SCH ×2 (08:51→20:44)
[2019-08-12] MEDS: LIDOcaine 5% patch TP SCH (08:52)
--- NOTE | 2019-08-12 09:00 | NUR ---
Received orders to d/c restraints and for daily labs CBC/BMP per Dr. Weldon
[2019-08-12 11:00] VITALS: BP 133/91
[2019-08-12] MEDS: levoFLOXACIN 750MG TABLET PO SCH (11:55)
[2019-08-12 14:24] LABS: BASOPHILS % (AUTO) 0.4 % (0-1); EOSINOPHILS % (AUTO) 0.1 % (0-6); HEMATOCRIT 40.3 % (42.0-52.0); HEMOGLOBIN 12.9 g/dl (14.0-17.9); LYMPHOCYTES # (AUTO) 0.2 X10'3 (1.1-4.8); LYMPHOCYTES % (AUTO) 2.3 % (21-51); MEAN CORPUSCULAR HEMOGLOBIN 27.3 PG (27.0-31.0); MEAN CORPUSCULAR VOLUME 85.3 FL (78-98); MEAN PLATELET VOLUME 8.5 FL (7.4-10.4); MONOCYTES # (AUTO) 0.3 X10'3 (0-0.9); MONOCYTES % (AUTO) 3.4 % (2-12); NEUTROPHILS # (AUTO) 8.5 X10'3 (1.8-7.7); NEUTROPHILS % (AUTO) 93.8 % (42-75); PLATELET COUNT 306 X10'3 (140-440); RED BLOOD COUNT 4.73 X10'6 (4.70-6.10); RED CELL DISTRIBUTION WIDTH 16.7 % (11.5-14.5); WHITE BLOOD COUNT 9.1 X10'3 (4.5-11.0)
[2019-08-12 14:29] LABS: ALBUMIN 2.3 G/DL (3.4-5.0); ANION GAP 6 (8-16); BLOOD UREA NITROGEN 34 MG/DL (7-18); BUN/CREATININE RATIO 31.2 (5.4-32.0); CALCIUM 8.3 MG/DL (8.5-10.1); CHLORIDE 102 MMOL/L (99-107); CREATININE 1.09 MG/DL (0.60-1.10); GLUCOSE 206 MG/DL (70-104); POTASSIUM 3.1 MMOL/L (3.5-5.1); SODIUM 141 MMOL/L (135-145); TOTAL CARBON DIOXIDE 32.8 MMOL/L (24-32); eGFR 67 ML/MIN
[2019-08-12 15:00] VITALS: BP 124/86
[2019-08-12] MEDS: potassium Cl 20 mEq SR tablet PO PRN ×2 (15:35→20:49)
[2019-08-12 18:00] VITALS: BP 138/95
--- NOTE | 2019-08-12 18:37 | NUR ---
Problems reprioritized. Patient report given, questions answered & plan of care reviewed with Linda WARD.
--- NOTE | 2019-08-12 18:57 | NUR ---
Patient in room PCU 3013. I have received report from Lachelle Ramirez and had the opportunity to ask questions and assume patient care. pt eating dinner on wheelchair, 30 L high flow FiO2 30%, Ns @ 20, sitter at bedside
--- NOTE | 2019-08-12 19:00 | NUR ---
pt got up to the commode with 2 person licensed physical therapist assistant with minimal help, was able to have a bowl movement, was cooperative.
[2019-08-12] MEDS: CefTRIAXone 2gm/D5W 50ml 50 ML IV SCH (20:59)
[2019-08-12 22:00] VITALS: BP 142/90
--- NOTE | 2019-08-12 22:20 | NUR ---
pt had order for continuous pulse ox but did not find one on pt. Cont pulse ox is in place
[2019-08-13] MEDS: methylPREDNISolone sod succ 125mg/2ml vial IV SCH ×3 (01:11→13:08)
[2019-08-13] MEDS: ciprofloxacin 0.3% 2.5ml ophthalmic solution EACHEYE SCH ×6 (01:11→19:15)
[2019-08-13] MEDS: diltiazem 30mg tablet PO SCH ×4 (01:12→19:12)
[2019-08-13] MEDS: potassium Cl 20 mEq SR tablet PO PRN ×3 (01:12→19:12)
[2019-08-13 02:00] VITALS: BP_SYST 133; BP_SYST 135; BP_DIAS 84; BP_DIAS 90
[2019-08-13] MEDS: ipratropium/albuterol 3ml nebule NEB SCH ×6 (03:22→23:16)
--- NOTE | 2019-08-13 03:26 | NUR ---
charge nurse Rafia noted that pt has a Cuevas with no Cuevas order and was placed on the 08/07 due to nursing judgment because pt penis was swollen and rapid response. Will notify Dr. Linder for an order of Cuevas
[2019-08-13 06:00] VITALS: BP 121/78
--- NOTE | 2019-08-13 06:33 | NUR ---
Problems reprioritized. Patient report given, questions answered & plan of care reviewed with rupali RN.
--- NOTE | 2019-08-13 06:43 | NUR ---
Patient in room PCU 3013. I have received report from SYLVIA Rick and had the opportunity to ask questions and assume patient care. Pt up in wheelchair. Will continue to monitor.
[2019-08-13 06:49] LABS: ALBUMIN 2.5 G/DL (3.4-5.0); ANION GAP 8 (8-16); BLOOD UREA NITROGEN 37 MG/DL (7-18); BUN/CREATININE RATIO 38.1 (5.4-32.0); CALCIUM 8.6 MG/DL (8.5-10.1); CHLORIDE 100 MMOL/L (99-107); CREATININE 0.97 MG/DL (0.60-1.10); GLUCOSE 154 MG/DL (70-104); POTASSIUM 3.2 MMOL/L (3.5-5.1); SODIUM 140 MMOL/L (135-145); TOTAL CARBON DIOXIDE 32.3 MMOL/L (24-32); eGFR 77 ML/MIN
[2019-08-13 06:50] LABS: BASOPHILS % (AUTO) 0 % (0-1); EOSINOPHILS % (AUTO) 0 % (0-6); HEMATOCRIT 42.4 % (42.0-52.0); HEMOGLOBIN 13.6 g/dl (14.0-17.9); LYMPHOCYTES # (AUTO) 0.2 X10'3 (1.1-4.8); LYMPHOCYTES % (AUTO) 2.4 % (21-51); MEAN CORPUSCULAR HEMOGLOBIN 27.4 PG (27.0-31.0); MEAN CORPUSCULAR HGB CONC 32.2 g/dL (33.0-36.5); MEAN CORPUSCULAR VOLUME 85.3 FL (78-98); MEAN PLATELET VOLUME 9.1 FL (7.4-10.4); MONOCYTES # (AUTO) 0.3 X10'3 (0-0.9); MONOCYTES % (AUTO) 3.2 % (2-12); NEUTROPHILS # (AUTO) 9.7 X10'3 (1.8-7.7); NEUTROPHILS % (AUTO) 94.4 % (42-75); PLATELET COUNT 328 X10'3 (140-440); RED BLOOD COUNT 4.97 X10'6 (4.70-6.10); RED CELL DISTRIBUTION WIDTH 17.1 % (11.5-14.5); WHITE BLOOD COUNT 10.3 X10'3 (4.5-11.0)
[2019-08-13] MEDS: K and/or MAG REPLACEMENT MC SCH (08:00)
[2019-08-13] MEDS: docusate sod 100mg capsule PO SCH ×2 (08:00→19:23)
[2019-08-13] MEDS: LIDOcaine 5% patch TP SCH ×2 (08:00→08:59)
[2019-08-13] MEDS: furosemide 40mg/4ml inj IV SCH ×2 (08:59→19:12)
[2019-08-13] MEDS: tamsulosin 0.4mg capsule PO SCH (08:59)
[2019-08-13] MEDS: amiodarone 200mg tablet PO SCH ×2 (08:59→19:12)
[2019-08-13] MEDS: aspirin 81mg tab.chew PO SCH (08:59)
[2019-08-13] MEDS: lactobacillus rhamnosus 10,000 MMU CELLS/CAPSULE PO SCH ×2 (08:59→19:13)
[2019-08-13] MEDS: nystatin 15 GM powder TP SCH ×3 (09:00→21:00)
--- NOTE | 2019-08-13 09:00 | NUR ---
Pt states he is leaving today. He was advised against it due to him being on so much O2 (30.0%). The pt feels that he is not seeing any progress. The pt is anxious about not having his stuff, which is in his truck at his friend's house. After speaking with Dr Weldon, the pt decided to stay "until tomorrow."
[2019-08-13] MEDS: atenolol 50mg tablet PO SCH ×2 (09:01→19:14)
[2019-08-13] MEDS: rivaroxaban 20mg tablet PO SCH (09:02)
[2019-08-13 11:00] VITALS: BP 100/61
[2019-08-13] MEDS: levoFLOXACIN 750MG TABLET PO SCH (11:16)
[2019-08-13 18:00] VITALS: BP 136/97
--- NOTE | 2019-08-13 18:26 | NUR ---
Patient in room PCU 3013. I have received report from Kendy and had the opportunity to ask questions and assume patient care. pt eating dinner, on 2L
[2019-08-13] MEDS: methylPREDNISolone sod succ/PF 40mg inj. IV SCH (19:10)
[2019-08-13] MEDS: CefTRIAXone 2gm/D5W 50ml 50 ML IV SCH (21:11)
[2019-08-13 22:00] VITALS: BP 97/58
[2019-08-14] MEDS: diltiazem 30mg tablet PO SCH ×4 (01:29→19:47)
[2019-08-14] MEDS: methylPREDNISolone sod succ/PF 40mg inj. IV SCH ×4 (01:30→19:39)
[2019-08-14] MEDS: potassium Cl 20 mEq SR tablet PO PRN ×4 (01:30→19:48)
[2019-08-14 02:00] VITALS: BP 112/78
[2019-08-14] MEDS: ipratropium/albuterol 3ml nebule NEB SCH ×6 (03:16→23:12)
[2019-08-14] MEDS: ciprofloxacin 0.3% 2.5ml ophthalmic solution EACHEYE SCH ×6 (04:00→19:49)
[2019-08-14 05:30] LABS: BASOPHILS % (AUTO) 0 % (0-1); EOSINOPHILS % (AUTO) 0 % (0-6); HEMATOCRIT 41.1 % (42.0-52.0); HEMOGLOBIN 13.1 g/dl (14.0-17.9); LYMPHOCYTES # (AUTO) 0.3 X10'3 (1.1-4.8); LYMPHOCYTES % (AUTO) 2.9 % (21-51); MEAN CORPUSCULAR HEMOGLOBIN 27.1 PG (27.0-31.0); MEAN CORPUSCULAR HGB CONC 31.9 g/dL (33.0-36.5); MEAN CORPUSCULAR VOLUME 84.7 FL (78-98); MEAN PLATELET VOLUME 8.7 FL (7.4-10.4); MONOCYTES # (AUTO) 0.3 X10'3 (0-0.9); NEUTROPHILS # (AUTO) 10.4 X10'3 (1.8-7.7); NEUTROPHILS % (AUTO) 94.1 % (42-75); PLATELET COUNT 324 X10'3 (140-440); RED BLOOD COUNT 4.86 X10'6 (4.70-6.10); RED CELL DISTRIBUTION WIDTH 16.9 % (11.5-14.5)
[2019-08-14 05:43] LABS: ALBUMIN 2.4 G/DL (3.4-5.0); ANION GAP 7 (8-16); BLOOD UREA NITROGEN 39 MG/DL (7-18); BUN/CREATININE RATIO 38.2 (5.4-32.0); CALCIUM 8.3 MG/DL (8.5-10.1); CHLORIDE 101 MMOL/L (99-107); CREATININE 1.02 MG/DL (0.60-1.10); GLUCOSE 132 MG/DL (70-104); SODIUM 141 MMOL/L (135-145); TOTAL CARBON DIOXIDE 33.5 MMOL/L (24-32); eGFR 73 ML/MIN
[2019-08-14 05:46] LABS: POTASSIUM 2.7 MMOL/L (3.5-5.1)
--- NOTE | 2019-08-14 05:50 | NUR ---
Critical value K 2.7 shad lo
--- NOTE | 2019-08-14 05:54 | NUR ---
PAGER ID: [phone] MESSAGE: rosie Charanjit Soni has critical value K 2.7.Thanks, Merline [phone]! Addendum: 08/14/19 at 0626 by Merline Goldman RN called Dr. lo, she said start replacing and try FINESSE Lewis
[2019-08-14 06:00] VITALS: BP 112/81
[2019-08-14] MEDS ORDERED: potassium CL 10mEq/100ml bag 100 ML IV PRN ×2 (06:25)
--- NOTE | 2019-08-14 06:35 | NUR ---
Patient in room PCU 3013. I have received report from SYLVIA Rick and had the opportunity to ask questions and assume patient care.
--- NOTE | 2019-08-14 06:43 | NUR ---
Problems reprioritized. Patient report given, questions answered & plan of care reviewed with Kendy RN.
[2019-08-14] MEDS: furosemide 40mg/4ml inj IV SCH ×2 (07:30→19:36)
[2019-08-14] MEDS: lactobacillus rhamnosus 10,000 MMU CELLS/CAPSULE PO SCH ×2 (07:31→19:47)
[2019-08-14] MEDS: aspirin 81mg tab.chew PO SCH (07:31)
[2019-08-14] MEDS: atenolol 50mg tablet PO SCH ×2 (07:31→19:46)
[2019-08-14] MEDS: amiodarone 200mg tablet PO SCH ×2 (07:32→19:48)
[2019-08-14] MEDS: tamsulosin 0.4mg capsule PO SCH (07:32)
[2019-08-14] MEDS: rivaroxaban 20mg tablet PO SCH (07:32)
[2019-08-14] MEDS: K and/or MAG REPLACEMENT MC SCH (07:33)
[2019-08-14] MEDS: docusate sod 100mg capsule PO SCH ×2 (07:33→19:50)
[2019-08-14] MEDS: LIDOcaine 5% patch TP SCH (07:34)
[2019-08-14] MEDS: nystatin 15 GM powder TP SCH ×3 (07:34→20:04)
--- NOTE | 2019-08-14 10:51 | NUR ---
The pt is becoming increasingly agitated. He refuses bilingual social worker consult. The pt's friend, Eusebio Cruz, was contacted and informed the nurse that the pt may not stay with him. Eusebio will pick the pt up from the hospital, but he is not allowed to stay at his house. The pt will not cooperate when trying to adjust his oxygen levels or performing other duties; he will not listen to questions and refuses to answer when he does, stating that he already has everything set up and doesn't need our help. Dr Weldon, case management, and bilingual social worker are all aware.
[2019-08-14] MEDS: levoFLOXACIN 750MG TABLET PO SCH (14:05)
--- NOTE | 2019-08-14 14:18 | NUR ---
O2 Sat at rest on room air:_85__% If below 89%: Recovery O2 Sat at rest on _2__LPM:_91__%:___% via___Nasal Cannula (mask/nasal cannula, etc..) No further documentation is necessary. If O2 Sat did not drop below 89% on room air,ambulate patient on room air. O2 Sat while ambulating on room air:___% Recovery O2 Sat while ambulating on ___LPM:___% No further documentation is necessary. If patient does not drop below 89% while ambulating, he/she does not qualify for home O2.
[2019-08-14 15:00] VITALS: BP 116/83
[2019-08-14 18:00] VITALS: BP 113/76
--- NOTE | 2019-08-14 18:37 | NUR ---
Problems reprioritized. Patient report given, questions answered & plan of care reviewed with SYLVIA Rick.
[2019-08-14] MEDS: CefTRIAXone 2gm/D5W 50ml 50 ML IV SCH (20:03)
[2019-08-14 22:00] VITALS: BP 100/70
[2019-08-15] MEDS: methylPREDNISolone sod succ/PF 40mg inj. IV SCH ×2 (01:09→07:22)
[2019-08-15] MEDS: ciprofloxacin 0.3% 2.5ml ophthalmic solution EACHEYE SCH ×4 (01:10→11:59)
[2019-08-15] MEDS: diltiazem 30mg tablet PO SCH ×2 (01:10→07:23)
[2019-08-15 03:00] VITALS: BP 114/75
[2019-08-15] MEDS: ipratropium/albuterol 3ml nebule NEB SCH ×3 (03:19→11:15)
[2019-08-15 05:35] LABS: BASOPHILS % (AUTO) 0.1 % (0-1); EOSINOPHILS % (AUTO) 0 % (0-6); HEMATOCRIT 43.8 % (42.0-52.0); HEMOGLOBIN 13.9 g/dl (14.0-17.9); LYMPHOCYTES # (AUTO) 0.3 X10'3 (1.1-4.8); LYMPHOCYTES % (AUTO) 2.7 % (21-51); MEAN CORPUSCULAR HEMOGLOBIN 26.9 PG (27.0-31.0); MEAN CORPUSCULAR HGB CONC 31.7 g/dL (33.0-36.5); MEAN CORPUSCULAR VOLUME 84.9 FL (78-98); MEAN PLATELET VOLUME 8.9 FL (7.4-10.4); MONOCYTES # (AUTO) 0.3 X10'3 (0-0.9); MONOCYTES % (AUTO) 2.7 % (2-12); NEUTROPHILS # (AUTO) 11.5 X10'3 (1.8-7.7); NEUTROPHILS % (AUTO) 94.5 % (42-75); PLATELET COUNT 350 X10'3 (140-440); RED BLOOD COUNT 5.16 X10'6 (4.70-6.10); RED CELL DISTRIBUTION WIDTH 17.2 % (11.5-14.5); WHITE BLOOD COUNT 12.2 X10'3 (4.5-11.0)
[2019-08-15 06:00] VITALS: BP 106/74
[2019-08-15 06:00] LABS: ALBUMIN 2.5 G/DL (3.4-5.0); ANION GAP 10 (8-16); BLOOD UREA NITROGEN 38 MG/DL (7-18); BUN/CREATININE RATIO 32.2 (5.4-32.0); CALCIUM 8.3 MG/DL (8.5-10.1); CHLORIDE 101 MMOL/L (99-107); CREATININE 1.18 MG/DL (0.60-1.10); GLUCOSE 128 MG/DL (70-104); POTASSIUM 3.3 MMOL/L (3.5-5.1); SODIUM 139 MMOL/L (135-145); TOTAL CARBON DIOXIDE 28.5 MMOL/L (24-32); eGFR 62 ML/MIN
--- NOTE | 2019-08-15 06:39 | NUR ---
Problems reprioritized. Patient report given, questions answered & plan of care reviewed with Kendy RN.
--- NOTE | 2019-08-15 07:03 | NUR ---
Patient in room PCU 3012. I have received report from SYLVIA Rick and had the opportunity to ask questions and assume patient care.
[2019-08-15] MEDS: atenolol 50mg tablet PO SCH (07:22)
[2019-08-15] MEDS: tamsulosin 0.4mg capsule PO SCH (07:22)
[2019-08-15] MEDS: amiodarone 200mg tablet PO SCH (07:22)
[2019-08-15] MEDS: furosemide 40mg/4ml inj IV SCH (07:22)
[2019-08-15] MEDS: lactobacillus rhamnosus 10,000 MMU CELLS/CAPSULE PO SCH (07:22)
[2019-08-15] MEDS: aspirin 81mg tab.chew PO SCH (07:22)
[2019-08-15] MEDS: rivaroxaban 20mg tablet PO SCH (07:23)
[2019-08-15] MEDS: docusate sod 100mg capsule PO SCH (07:23)
[2019-08-15] MEDS: LIDOcaine 5% patch TP SCH (07:23)
[2019-08-15] MEDS: K and/or MAG REPLACEMENT MC SCH (07:24)
[2019-08-15] MEDS: nystatin 15 GM powder TP SCH ×2 (07:24→12:40)
--- NOTE | 2019-08-15 08:52 | NUR ---
Spoke with Eusebio Hope, the pt's friend in [place]. He stated that he spoke with Vilma, the pt's girlfriend, and she is flying in at 2342 from [place], as well as confirming the pt's plans. Per Eusebio the pt's plan is to leave [place] today, stay in a hotel/motel, and drive back to [place] with Vilma.
[2019-08-15 11:00] VITALS: BP 112/82
[2019-08-15] MEDS: levoFLOXACIN 750MG TABLET PO SCH (11:58)
--- NOTE | 2019-08-15 12:10 | NUR ---
Pt leaving AMA. Friend, Eusebio Cruz, coming to pick pt up now.
[2019-08-15] MEDS ORDERED: methylPREDNISolone sod succ/PF 40mg inj. IV SCH (12:30)
[2019-08-15] MEDS ORDERED: furosemide 40mg/4ml inj IV SCH (12:30)
[2019-08-15] MEDS ORDERED: amiodarone 100mg tablet PO SCH (12:30)
--- NOTE | 2019-08-15 14:05 | NUR ---
Pt left unit with friend.
== END 2019-08-15 14:33 | disposition left against medical advice (07) | DRG 205 ==
LOC: ER 14:15 → ED HOLD 19:24 → MED 3N 22:10 → PCU 3S 08-06 16:20 → CICU 2S 08-07 22:55 → PCU 3S 08-11 15:20
PROVIDERS: ADMIT Internal Medicine; ATTEND Family Medicine
PROC: 5A09357 Assistance with Respiratory Ventilation, Less than 24 Consecutive Hours, Continuous Positive Airway Pressure (ICD-10-PCS; principal; 2019-08-06)
PROC: 5A09357 Assistance with Respiratory Ventilation, Less than 24 Consecutive Hours, Continuous Positive Airway Pressure (ICD-10-PCS; 2019-08-07)
PROC: 5A09357 Assistance with Respiratory Ventilation, Less than 24 Consecutive Hours, Continuous Positive Airway Pressure (ICD-10-PCS; 2019-08-08)
PROC: 5A09357 Assistance with Respiratory Ventilation, Less than 24 Consecutive Hours, Continuous Positive Airway Pressure (ICD-10-PCS; 2019-08-10)
PROC: 5A09357 Assistance with Respiratory Ventilation, Less than 24 Consecutive Hours, Continuous Positive Airway Pressure (ICD-10-PCS; 2019-08-11)
PROC: 5A09357 Assistance with Respiratory Ventilation, Less than 24 Consecutive Hours, Continuous Positive Airway Pressure (ICD-10-PCS; 2019-08-12)
PROC: 5A09357 Assistance with Respiratory Ventilation, Less than 24 Consecutive Hours, Continuous Positive Airway Pressure (ICD-10-PCS; 2019-08-13)
DX: S22.31XA Fracture of one rib, right side, initial encounter for closed fracture (principal); I50.33 Acute on chronic diastolic (congestive) heart failure; J96.01 Acute respiratory failure with hypoxia; F10.239 Alcohol dependence with withdrawal, unspecified; G93.40 Encephalopathy, unspecified; J44.1 Chronic obstructive pulmonary disease with (acute) exacerbation; Z68.43 Body mass index [BMI] 50.0-59.9, adult; E87.6 Hypokalemia; E66.01 Morbid (severe) obesity due to excess calories; G47.33 Obstructive sleep apnea (adult) (pediatric); Z53.29 Procedure and treatment not carried out because of patient's decision for other reasons; I48.0 Paroxysmal atrial fibrillation; I11.0 Hypertensive heart disease with heart failure; N40.0 Benign prostatic hyperplasia without lower urinary tract symptoms; T38.0X5A Adverse effect of glucocorticoids and synthetic analogues, initial encounter; W01.0XXA Fall on same level from slipping, tripping and stumbling without subsequent striking against object, initial encounter; Z78.1 Physical restraint status; Z79.01 Long term (current) use of anticoagulants; Z87.891 Personal history of nicotine dependence; Z91.19 Patient's noncompliance with other medical treatment and regimen; Z98.84 Bariatric surgery status; Y93.89 Activity, other specified; Y92.89 Other specified places as the place of occurrence of the external cause; Y99.8 Other external cause status
CPT/HCPCS: 36415; 36600; 70450; 70490; 71045; 71250; 80048; 80053; 80162; 81001; 82803; 83605; 83735; 83880; 84100; 84132; 84145; 84439; 84443; 84484; 85018; 85025; 85610; 85730; 87040; 87081; 87088; 93005; 93308; 94640; 94660; 94667; 94668; 94760; 96374; 96375; 96376; 97110; 97112; 97116; 97162; 97530; 99285; G0378; J0282; J0696; J1160; J1885; J1940; J1956; J2060; J2270; J2405; J2920; J2930; J3475; J3490